=== PATIENT | male | born 1980 | race Caucasian/White ===

== ENCOUNTER → 2019-08-04 08:21 | Outpatient (CLI) | payer MEDICAID, SELFPAY ==
[2019-08-04 08:11] VITALS: BMI 28.7
--- NOTE | 2019-08-04 08:23 | RAD_ITS ---
STUDY: X-RAY - RIGHT SHOULDER REASON FOR EXAM: Male, 38 years old. continued pain after PT TECHNIQUE: 4 view(s) of the shoulder. COMPARISON: None. FINDINGS: Normal glenohumeral articulation. Normal acromioclavicular joint. Normal acromion. Normal humeral head and visualized proximal humerus. The soft tissue structures are unremarkable. Normal visualized pulmonary apex. RAD/Shoulder min 2 Views IMPRESSION: Normal x-ray examination of the shoulder. Electronically Signed: Nain Rock MD at 14:00 EST Tel , Service support ,
== END ==
PROVIDERS: Referring Provider Orthopaedic Surgery; Visit Provider Orthopaedic Surgery
DX: M25.511 Pain in right shoulder (principal)
CPT/HCPCS: 73030

== ENCOUNTER → 2019-12-12 10:49 | Outpatient (CLI) | payer MEDICAID, SELFPAY ==
[2019-12-12 10:44] VITALS: BMI 28.7
--- NOTE | 2019-12-12 10:49 | RAD_ITS ---
HISTORY: LBP EXAMINATION/TECHNIQUE: XR Spine Lumbar 5 views COMPARISON: None FINDINGS: The lumbar vertebra show normal height and alignment. No fracture or suspicious bony lesion. Lumbar disc space heights are preserved. The posterior elements are intact. No spondylolisthesis. The SI joints are preserved. Moderate colonic stool. RAD/L/S Spine Min 4 Views IMPRESSION: 1. Normal lumbar spine. 2. Moderate colonic stool. at 0802 Reported and signed by: Goldy Ching MD Electronically Signed: Goldy Ching, at 8:00 EDT Tel , Service support ,
== END ==
PROVIDERS: Referring Provider Physician Assistant; Visit Provider Physician Assistant
DX: M54.9 Dorsalgia, unspecified (principal)
CPT/HCPCS: 72110

== ENCOUNTER 2024-08-18 15:58 | Outpatient (RCR) | payer BC, SELFPAY | END 2024-09-01 23:59 | LOC: NS 15:58 | PROVIDERS: PCP Physician Assistant; Referring Provider Physician Assistant; Visit Provider Physician Assistant | DX: Z71.3 Dietary counseling and surveillance (principal) | CPT/HCPCS: 97802 ==

== ENCOUNTER 2024-09-17 10:30 | Outpatient (RCR) | payer BC, SELFPAY | END 2024-10-01 23:59 | LOC: NS 10:30 | PROVIDERS: PCP Physician Assistant; Referring Provider Physician Assistant; Visit Provider Physician Assistant | DX: Z71.3 Dietary counseling and surveillance (principal); E66.01 Morbid (severe) obesity due to excess calories; Z68.36 Body mass index [BMI] 36.0-36.9, adult | CPT/HCPCS: 97803 ==

== ENCOUNTER 2024-10-14 09:59 | Outpatient (RCR) | payer BC, SELFPAY | END 2024-11-01 23:59 | LOC: NS 09:59 | PROVIDERS: PCP Physician Assistant; Referring Provider Physician Assistant; Visit Provider Physician Assistant | DX: Z71.3 Dietary counseling and surveillance (principal); E66.01 Morbid (severe) obesity due to excess calories; Z68.36 Body mass index [BMI] 36.0-36.9, adult | CPT/HCPCS: 97803 ==

== ENCOUNTER 2024-11-18 10:35 | Outpatient (RCR) | payer BC, SELFPAY | END 2024-12-01 23:59 | LOC: NS 10:35 | PROVIDERS: PCP Physician Assistant; Referring Provider Physician Assistant; Visit Provider Physician Assistant | DX: Z71.3 Dietary counseling and surveillance (principal); E66.01 Morbid (severe) obesity due to excess calories; Z68.36 Body mass index [BMI] 36.0-36.9, adult | CPT/HCPCS: 97803 ==

== ENCOUNTER 2024-12-09 10:03 | Outpatient (RCR) | payer BC, SELFPAY | END 2025-01-01 23:59 | LOC: NS 10:03 | PROVIDERS: PCP Physician Assistant; Referring Provider Physician Assistant; Visit Provider Physician Assistant | DX: Z71.3 Dietary counseling and surveillance (principal); E66.01 Morbid (severe) obesity due to excess calories; Z68.36 Body mass index [BMI] 36.0-36.9, adult | CPT/HCPCS: 97803 ==

== ENCOUNTER 2025-01-29 10:24 | Outpatient (RCR) | payer BC, SELFPAY | END 2025-02-01 23:59 | LOC: NS 10:24 | PROVIDERS: PCP Physician Assistant; Referring Provider Physician Assistant; Visit Provider Physician Assistant | DX: Z71.3 Dietary counseling and surveillance (principal); E66.01 Morbid (severe) obesity due to excess calories; Z68.36 Body mass index [BMI] 36.0-36.9, adult | CPT/HCPCS: 97803 ==

== ENCOUNTER 2025-02-25 10:30 | Outpatient (RCR) | payer BC, SELFPAY | END 2025-03-03 23:59 | LOC: NS 10:30 | PROVIDERS: PCP Physician Assistant; Referring Provider Physician Assistant; Visit Provider Physician Assistant | DX: Z71.3 Dietary counseling and surveillance (principal); E66.01 Morbid (severe) obesity due to excess calories; Z68.36 Body mass index [BMI] 36.0-36.9, adult | CPT/HCPCS: 97803 ==

== ENCOUNTER 2025-03-18 10:28 | Outpatient (RCR) | payer BC, SELFPAY | END 2025-04-03 23:59 | LOC: NS 10:28 | PROVIDERS: PCP Physician Assistant; Referring Provider Physician Assistant; Visit Provider Physician Assistant | DX: Z71.3 Dietary counseling and surveillance (principal); E66.01 Morbid (severe) obesity due to excess calories; Z68.36 Body mass index [BMI] 36.0-36.9, adult | CPT/HCPCS: 97803 ==

== ENCOUNTER 2025-04-28 10:30 | Outpatient (RCR) | payer BC, SELFPAY | END 2025-05-03 23:59 | LOC: NS 10:30 | PROVIDERS: PCP Physician Assistant; Referring Provider Physician Assistant; Visit Provider Physician Assistant | DX: Z71.3 Dietary counseling and surveillance (principal); E66.01 Morbid (severe) obesity due to excess calories; Z68.36 Body mass index [BMI] 36.0-36.9, adult | CPT/HCPCS: 97803 ==